=== PATIENT | male | born 1990 | race Caucasian/White ===

== ENCOUNTER 2018-08-03 04:10 | Emergency (ER) | payer SELFPAY ==
[~2018-08-03] VITALS: Ht 170.2 cm; Wt 78.0 kg
[2018-08-03 04:36] VITALS: BP 142/88
== END 2018-08-03 07:25 | disposition left against medical advice (07) ==
LOC: ER 04:10
DX: Z53.21 Procedure and treatment not carried out due to patient leaving prior to being seen by health care provider (principal)